=== PATIENT | female | born 1985 | race Caucasian/White ===

== ENCOUNTER 2020-12-15 19:42 | Emergency (ER) | payer BC ==
[~2020-12-15] VITALS: Ht 149.9 cm; Wt 95.3 kg
--- NOTE | 2020-12-15 19:46 | NUR ---
PT BIBSELF C/O CUTTING LEFT INDEX FINGER WHILE CHOPPING ONIONS. PT AAOX4 BREATHING EVENLY AND UNLABORED. PT ATTACHED TO MONITOR AND POX. EMT AT BEDSIDE FOR WOUND CLEANING. PT SKIN WARM AND DRY. WILL CONTINUE TO MONITOR
--- NOTE | 2020-12-15 20:15 | NUR ---
EMT DOING WOUND CARE
[2020-12-15] MEDS ORDERED: BACI30OI9 TP (20:42)
[2020-12-15] MEDS ORDERED: IBUP-1955 PO (20:42)
--- NOTE | 2020-12-15 20:47 | NUR ---
Patient discharged to home in stable condition. Written and verbal after care instructions given. Patient verbalizes understanding of instruction. pT ambulatory with a steady gait
[2020-12-15 20:56] VITALS: BP 140/90
== END 2020-12-15 20:47 | disposition home or self-care (01) ==
LOC: ER 19:42
DX: S61.201A Unspecified open wound of left index finger without damage to nail, initial encounter (principal); Z79.899 Other long term (current) drug therapy; W26.0XXA Contact with knife, initial encounter; Y93.89 Activity, other specified; Y92.89 Other specified places as the place of occurrence of the external cause; Y99.8 Other external cause status
CPT/HCPCS: 99282; A6403